=== PATIENT | female | born 1975 | race Two or more races ===

== ENCOUNTER 2018-01-06 17:27 | Emergency (ER) | payer SELFPAY ==
[2018-01-06 17:49] VITALS: BP 137/88
[2018-01-06 18:52] LABS: Basophils # (auto) 0 uL; Monocytes # (auto) 0.4 uL; Neutrophils # (auto) 3.8 uL; Nucleated Red Blood Cells % 0.5 %; Red Blood Cells 3.66 10^6/uL (4.0-5.20)
[2018-01-06 18:54] LABS: Basophils % (auto) 0.5 % (0.0-2.0); Eosinophils # (auto) 0 uL; Hematocrit 27.6 % (36.0-46.0); Hemoglobin 8.6 g/dL (12.2-16.2); Lymphocytes # (auto) 0.7 uL; Lymphocytes % (auto) 14.4 % (10.0-50.0); Mean Corpuscular Hemoglobin 23.4 pg (28.0-32.0); Mean Corpuscular Volume 75.4 fL (80.0-100.0); Monocytes % (auto) 8.4 % (0.0-12.0); Neutrophils % (auto) 75.7 % (37.0-80.0); Platelet Count (auto) 264 10^3/uL (140-450); Red Cell Distribution Width 16.9 % (11.8-14.3)
[2018-01-06 19:08] LABS: Albumin 3.7 g/dL (3.4-5.0); BUN/Creatinine Ratio 17.1; Calcium 8.9 mg/dL (8.5-10.1); Potassium 4.1 mmol/L (3.5-5.1)
[2018-01-06 19:31] LABS: Bilirubin, Total 0.2 mg/dL (0.2-1.0); Total Protein 7.7 g/dL (6.4-8.2)
[2018-01-06 21:07] LABS: Urine Bacteria NONE SEEN /hpf (None Seen); Urine Blood Negative /uL (Negative); Urine Specific Gravity 1.013 (1.001-1.035); Urine WBC 7 /hpf (0 - 5)
== END 2018-01-06 21:17 | disposition left against medical advice (07) ==
LOC: ER 17:31
DX: N93.9 Abnormal uterine and vaginal bleeding, unspecified (principal); M79.1 Myalgia; M54.9 Dorsalgia, unspecified; Z53.21 Procedure and treatment not carried out due to patient leaving prior to being seen by health care provider
CPT/HCPCS: 36415; 80053; 81001; 85025